=== PATIENT | female | born 1960 | race Caucasian/White ===

== ENCOUNTER 2020-08-30 09:17 | Emergency (ER) | payer OTHER ==
[~2020-08-30] VITALS: Ht 160 cm; Wt 99.8 kg
[2020-08-30] MEDS ORDERED: AZITHROMYCIN 500MG/NS 250 ML 250 ML IV STA (09:31)
[2020-08-30] MEDS ORDERED: ASPIRIN 81 MG CHEW TAB PO ONE (09:45)
[2020-08-30 10:00] LABS: BASOPHILS % 0.2 % (0.0-1.0); HEMATOCRIT 41.2 % (34.2-44.1); HEMOGLOBIN 13.7 g/dL (12.0-16.0); LYMPHOCYTES # (AUTO) 0.6 (1.0-3.2); LYMPHOCYTES % 3.4 % (18.0-39.1); MEAN CORPUSCULAR HEMOGLOBIN 28.2 pg (28-32); MEAN CORPUSCULAR HGB CONC 33.3 g/dL (31-35); MEAN CORPUSCULAR VOLUME 84.8 fL (81-99); MONOCYTES # (AUTO) 0.9 (0.2-0.8); MONOCYTES % 5.1 % (4.4-11.3); NEUTROPHILS # (AUTO) 15.6 (2.1-6.9); NEUTROPHILS % 89.9 % (38.7-80.0); PLATELET COUNT 335 x10e3/uL (140-360); RED BLOOD COUNT 4.86 x10e6/uL (3.6-5.1); RED CELL DISTRIBUTION WIDTH 14.4 % (11.7-14.4)
[2020-08-30] MEDS ORDERED: DEXAMETHASONE SOD PHOS INJ 4 MG/ML VIAL IV ONE (10:00)
[2020-08-30 10:18] LABS: ALANINE AMINOTRANSFERASE 59 IU/L (0-55); ALBUMIN 2.7 g/dL (3.5-5.0); ALBUMIN/GLOBULIN RATIO 0.7 (0.8-2.0); ALKALINE PHOSPHATASE 52 IU/L (40-150); ANION GAP 13.6 mmol/L (8-16); BLOOD UREA NITROGEN 14 mg/dL (7-26); BUN/CREATININE RATIO 23 (6-25); CALCIUM 8.3 mg/dL (8.4-10.2); CARBON DIOXIDE 26 mmol/L (22-29); CHLORIDE 100 mmol/L (98-107); CREATINE KINASE 104 IU/L (29-168); EST GLOMERULAR FILTRATION RATE > 60 ML/MIN (60-); GLUCOSE 103 mg/dL (74-118); POTASSIUM 3.6 mmol/L (3.5-5.1); SODIUM 136 mmol/L (136-145)
[2020-08-30] MEDS ORDERED: ONDANSETRON HCL INJ 2MG/ML 2ML 2 MG/ML VIAL IV STA (10:34)
[2020-08-30] MEDS ORDERED: ONDANSETRON HCL INJ 2MG/ML 2ML 2 MG/ML VIAL IV ONE (11:00)
== END 2020-08-30 11:43 | disposition other institution (70) ==
LOC: ER 09:26
DX: U07.1 COVID-19 (principal); R09.02 Hypoxemia; R05 Cough; R06.02 Shortness of breath; R53.1 Weakness
CPT/HCPCS: 36415; 71045; 80053; 82550; 82553; 84484; 85025; 87040; 93005; 99284; J0456; J1100; J2405; U0002